=== PATIENT | female | born 1980 | race Caucasian/White ===

== ENCOUNTER 2016-12-13 14:57 | Emergency (ER) | payer SELFPAY ==
[~2016-12-13] VITALS: Ht 147.3 cm; Wt 57.1 kg
--- NOTE | ~2016-12-13 | CR21 ---
[facility] A Service of [facility] RADIOLOGY TEXT RESULTS PATIENT: LISSETTE PHILIP LOCATION: [facility] : 84 UNIT #: [id number] AGE: [address]: Dipti Urban SEX: F ORDER DR: [id number] [facility] [address] [place], [place] [address] [id number] E MR#: [id number] #: [id number] NAME: LISSETTE PHILIP : 1980 SEX: F STUDY DATE/TIME: 12/13/2016 15:12 UNIT: [facility] ROOM: STUDY DESCRIPTION: CR Ankle Min 3 Views Rt Attending Physician: Dipti Urban Pa-C Ordering Physician: Dipti Urban Pa-C Primary Care Physician: Primary Care Physician No MEDICAL IMAGING REPORT This report is preliminary unless electronic signature is present EXAM Right foot and ankle HISTORY Ankle pain, swelling and bruising, fell in ditch twisting ankle yesterday, toenail ripped off. FINDINGS Three views of the right ankle demonstrates a small flake of bone off the dorsal aspect of the navicular could represent a small capsular avulsion injury. No other fractures or deformities noted. No focal soft tissue swelling or edema identified. No joint effusion. IMPRESSION Small flake of bone off the dorsal aspect of the navicular could represent a small capsular avulsion injury. Dictated by... Kennedy Feldman M.D. THIS IS AN ELECTRONICALLY VERIFIED REPORT Kennedy Feldman M.D. at 12/13/2016 10:03 PM FRANCINE/annalisa TD: 12/13/2016 17:31 JOB #: [id number] MEDICAL IMAGING REPORT Page 1 of 1 COPY
--- NOTE | ~2016-12-13 | CR127 ---
[facility] A Service of [facility] RADIOLOGY TEXT RESULTS PATIENT: LISSETTE PHILIP LOCATION: [facility] : 84 UNIT #: [id number] AGE: [address]: Dipti Urban SEX: F ORDER DR: [id number] [facility] [address] [place], [place] [address] [id number] E MR#: [id number] Acc #: [id number] NAME: LISSETTE PHILIP : 1980 SEX: F STUDY DATE/TIME: 12/13/2016 15:14 UNIT: [facility] ROOM: STUDY DESCRIPTION: CR Foot Complete Min 3 View Rt Attending Physician: Dipti Urban Pa-C Ordering Physician: Dipti Urban Pa-C Primary Care Physician: No Primary Care Physician MEDICAL IMAGING REPORT This report is preliminary unless electronic signature is present EXAM Right foot 3 views HISTORY Fell in ditch twisting foot and ankle yesterday. FINDINGS Three views of the right foot demonstrates a small flake of bone off the dorsal aspect of the navicular. It could represent a small avulsion injury but may just represent soft tissue change. No definite fracture or dislocation. Joint spaces maintained. No radiopaque foreign body. IMPRESSION Questionable small avulsion injury off the dorsal aspect of the navicular. However, on close review this does not appear to represent true ossification and no corresponding defect is seen within the navicular. This may just represent soft tissue changes. There is mild soft tissue swelling over the dorsum of the foot. Dictated by... Kennedy Feldman M.D. THIS IS AN ELECTRONICALLY VERIFIED REPORT Kennedy Feldman M.D. at 12/13/2016 10:03 PM Marce TD: 12/13/2016 17:30 JOB #: [id number] MEDICAL IMAGING REPORT Page 1 of 1 COPY
== END 2016-12-13 16:10 | disposition home or self-care (01) ==
LOC: CFTX 14:57 → CED 14:57 → CFTX 15:23
DX: S93.401A Sprain of unspecified ligament of right ankle, initial encounter (principal); F17.200 Nicotine dependence, unspecified, uncomplicated; W50.2XXA Accidental twist by another person, initial encounter
CPT/HCPCS: 29540; 73610; 73630; 99283